=== PATIENT | male | born 1930 | race Caucasian/White ===

== ENCOUNTER 2018-09-15 22:18 | Inpatient (IN) | payer OTHER, BC ==
[~2018-09-15] VITALS: Ht 177.8 cm; Wt 93.9 kg
[~2018-09-15 22:18] MED LIST: ASCO500T20 PO; CYAN100010 PO; CYM30 PO; DEXL60CA4 PO; FURO-149 PO; GABA-533 PO; GLIP10TA21 PO; INSU100V9 SQ; LINA5TAB2 PO; METO1TAB39 PO; OMEG-95 PO; POTA8TAB4 PO; ROSU40TA PO; SENN-104 PO; SUCR1TAB78 PO; VITD2000 PO
[2018-09-15 22:21] VITALS: BP_SYST 145
[2018-09-15] MEDS ORDERED: NACL 0.9% 1,000 ML IV ONE (22:45)
[2018-09-15 23:05] LABS: RED BLOOD CELL COUNT(AUTO) 3.36 MIL/uL (4.2-6.2)
[2018-09-15 23:06] LABS: HEMATOCRIT 34.3 % (36-54); HEMOGLOBIN 11.4 g/dL (14.0-18.0); LYMPHOCYTES % (AUTO) 7.9 % (20.5-51.5); MEAN CORPUSCULAR HEMOGLOBIN 34 pg (27-31); MEAN CORPUSCULAR HGB CONC 33 % (32-36); MEAN CORPUSCULAR VOLUME 102 fL (79.0-98.0); NEUTROPHILS % (AUTO) 83.6 % (40.0-70.0); PLATELET COUNT (AUTO) 139 K/uL (130-430); RED CELL DISTRIBUTION WIDTH 17.3 % (9.0-15.0)
[2018-09-15 23:07] LABS: BASOPHILS % (AUTO) 0.3 % (0.0-2.0); EOSINOPHILS % (AUTO) 0.5 % (0.0-4.0); LYMPHOCYTES # (AUTO) 0.6 K/uL (1.0-5.5); MONOCYTES # (AUTO) 0.5 K/uL (0.0-1.0); MONOCYTES % (AUTO) 7.7 % (1.7-9.3); NEUTROPHILS # (AUTO) 5.9 K/uL (1.8-7.7)
[2018-09-15 23:13] LABS: ANION GAP 9 (5-15); CALCIUM 8.1 mg/dL (8.4-11.0); CHLORIDE 102 mmol/L (98-107); CREATININE 1.77 mg/dL (0.55-1.30); GLUCOSE 91 mg/dL (70-99); SODIUM SERUM 136 mmol/L (136-145); UREA NITROGEN, BLOOD 37 mg/dL (8-21)
[2018-09-15 23:17] LABS: ALANINE AMINOTRANSFERASE 30 U/L (12-78); ALBUMIN 3.5 g/dL (3.4-4.8); ASPARTATE AMINOTRANSFERASE 31 U/L (10-37); TOTAL BILIRUBIN 0.6 mg/dL (0.0-1.0)
[2018-09-15 23:30] LABS: PROTHROMBIN TIME 10.7 SECS (9.5-12.5)
[2018-09-15] MEDS ORDERED: POTASSIUM CHLORIDE 20 MEQ TAB.PRT.SR PO ONE (23:30)
[2018-09-16] VITALS (7 sets, daily range): BP systolic 93–155
[2018-09-16] MEDS ORDERED: NACL 0.9% 3,000 ML IV ONE
[2018-09-16] MEDS ORDERED: ENOXAPARIN SODIUM 100 MG/ML SYRINGE SUBCUT ONE
[2018-09-16] MEDS ORDERED: ASPIRIN 81 MG TAB.CHEW PO ONE
[2018-09-16] MEDS ORDERED: CYM30 PO (00:26)
[2018-09-16] MEDS ORDERED: GABA-533 PO (00:26)
[2018-09-16] MEDS ORDERED: SUCR1TAB78 PO (00:26)
[2018-09-16] MEDS ORDERED: LINA5TAB2 PO (00:26)
[2018-09-16] MEDS ORDERED: POTA8TAB4 PO (00:26)
[2018-09-16] MEDS ORDERED: DEXL60CA4 PO (00:26)
[2018-09-16] MEDS ORDERED: OXYC-580 PO (00:26)
[2018-09-16] MEDS ORDERED: METO50TA7 PO (00:26)
[2018-09-16] MEDS ORDERED: MORPHINE 4 MG/ML INJ. SYRINGE IVP ONE (00:30)
[2018-09-16] MEDS ORDERED: NOVOLOG SQ (00:35)
[2018-09-16 00:45] LABS: BILIRUBIN,URINE NEGATIVE (NEGATIVE); CLARITY/URINE CLEAR (CLEAR); COLOR,URINE YELLOW (YELLOW); GLUCOSE,URINE TRACE (NEGATIVE); KETONES,URINE NEGATIVE (NEGATIVE); LEUKOCYTE ESTERASE ,URINE NEGATIVE (NEGATIVE); NITRITE, URINE NEGATIVE (NEGATIVE); PROTEIN URINE 1+ (NEGATIVE); UROBILINOGEN,URINE 0.2 (0.2-1.0)
[2018-09-16] MEDS ORDERED: DEXTROSE 50% JECT 50 ML DISP.SYRIN IVP ONE (00:45)
[2018-09-16 00:46] LABS: BLOOD, URINE TRACE (NEGATIVE)
[2018-09-16 01:13] LABS: BACTERIA,URINE FEW /HPF (None Seen); WBC,URINE 0-3 /HPF (0-3)
[2018-09-16] MEDS ORDERED: D5W 1,000 ML IV PRN (06:04)
[2018-09-16] MEDS ORDERED: ACETAMINOPHEN 325 MG TABLET PO PRN (06:15)
[2018-09-16] MEDS ORDERED: DOCUSATE SODIUM 100 MG CAPSULE PO PRN (06:15)
[2018-09-16] MEDS ORDERED: DEXTROSE 50% JECT 50 ML DISP.SYRIN IVP PRN (06:15)
[2018-09-16] MEDS ORDERED: MUPIROCIN 2% TOPICAL OINTMENT 22 GM NS PRN (06:15)
[2018-09-16] MEDS ORDERED: GLUCOSE 15 GM GEL (in 37.5 GM TUBE) PO PRN (06:15)
[2018-09-16] MEDS ORDERED: ZOLPIDEM TARTRATE 5 MG TABLET PO PRN (06:15)
[2018-09-16] MEDS ORDERED: POTASSIUM CHLORIDE 20 MEQ TAB.PRT.SR PO PRN (06:15)
[2018-09-16] MEDS ORDERED: LORazepam 2 MG/ML VIAL IVP PRN (06:15)
[2018-09-16] MEDS ORDERED: MAGNESIUM SULFATE 50 ML IV PRN (06:15)
[2018-09-16] MEDS ORDERED: oxyCODONE HCL 5 MG TABLET PO PRN (06:15)
[2018-09-16] MEDS ORDERED: ONDANSETRON HCL 4 MG/2 ML VIAL IVP PRN (06:15)
[2018-09-16] MEDS ORDERED: DEXTROSE 50% JECT 50 ML DISP.SYRIN ONE (06:17)
[2018-09-16] MEDS: D5NS 1,000 ML IV SCH ×2 (06:50→09:53)
[2018-09-16] MEDS: MORPHINE 4 MG/ML INJ. SYRINGE IVP PRN ×5 (08:12→22:31)
[2018-09-16 08:25] LABS: ANION GAP 11 (5-15); CALCIUM 8.2 mg/dL (8.4-11.0); CHLORIDE 107 mmol/L (98-107); CREATININE 1.51 mg/dL (0.55-1.30); GLUCOSE 80 mg/dL (70-99); POTASSIUM 3.7 mmol/L (3.5-5.1); SODIUM SERUM 142 mmol/L (136-145); UREA NITROGEN, BLOOD 30 mg/dL (8-21)
[2018-09-16] MEDS ORDERED: ENOXAPARIN SODIUM 30 MG/0.3 ML SYRINGE SUBCUT SCH (09:00)
[2018-09-16] MEDS ORDERED: POTASSIUM CHLORIDE 8 MEQ TABLET.SA PO SCH (09:00)
[2018-09-16] MEDS ORDERED: FUROSEMIDE 40 MG TABLET PO SCH (09:00)
[2018-09-16] MEDS ORDERED: FUROSEMIDE 20 MG/2 ML VIAL IVP ONE (09:45)
[2018-09-16] MEDS: SUCRALFATE 1 GM TABLET PO SCH ×4 (09:51→20:36)
[2018-09-16] MEDS: GABAPENTIN 400 MG CAPSULE PO SCH ×2 (09:51→20:36)
[2018-09-16] MEDS ORDERED: MORPHINE SULFATE 15 MG TABLET.ER PO ONE (10:00)
[2018-09-16] MEDS: PANTOPRAZOLE SODIUM 40 MG TAB PO SCH (14:08)
[2018-09-16] MEDS: SENNOSIDES/DOCUSATE SODIUM 1 TAB TABLET(SENOKOT-S) PO SCH ×2 (14:08→20:36)
[2018-09-16] MEDS ORDERED: ASPI-1153 PO (16:47)
[2018-09-16] MEDS ORDERED: CALC0.258 PO (16:47)
[2018-09-16] MEDS ORDERED: DEC4 PO (16:47)
[2018-09-16] MEDS: DULoxetine HCL 30 MG CAPSULE.DR (CYMBALTA) PO SCH (20:36)
[2018-09-16] MEDS: MORPHINE SULFATE 15 MG TABLET.ER PO SCH (20:38)
[2018-09-16] MEDS: APIXABAN 2.5 MG TABLET PO SCH (20:38)
[2018-09-16] MEDS: INSULIN REGULAR, HUMAN 100 UNITS/ML, 10 ML VIAL (novoLIN R) SUBCUT PRN (20:59)
[2018-09-16] MEDS ORDERED: [UNRECOGNIZED DRUG - OTHER] PO SCH (21:00)
[2018-09-16] MEDS ORDERED: METOPROLOL SUCCINATE PO SCH (21:00)
[2018-09-16] MEDS ORDERED: HCTZ PO SCH (21:00)
[2018-09-16] MEDS ORDERED: ATORVASTATIN 20 MG TABLET PO SCH (21:00)
[2018-09-17] MEDS: MORPHINE 4 MG/ML INJ. SYRINGE IVP PRN ×5 (01:09→20:29)
[2018-09-17] MEDS: D5NS 1,000 ML IV SCH ×2 (01:10→22:30)
[2018-09-17 07:22] LABS: ANION GAP 10 (5-15); CHLORIDE 108 mmol/L (98-107); CREATININE 1.57 mg/dL (0.55-1.30); GLUCOSE 71 mg/dL (70-99); POTASSIUM 4.1 mmol/L (3.5-5.1); SODIUM SERUM 140 mmol/L (136-145); UREA NITROGEN, BLOOD 24 mg/dL (8-21)
[2018-09-17 07:42] LABS: HEMATOCRIT 30.9 % (36-54); HEMOGLOBIN 10.2 g/dL (14.0-18.0); MEAN CORPUSCULAR HEMOGLOBIN 34 pg (27-31); MEAN CORPUSCULAR VOLUME 102 fL (79.0-98.0); RED BLOOD CELL COUNT(AUTO) 3.02 MIL/uL (4.2-6.2); WHITE BLOOD COUNT (AUTO) 4.5 K/uL (4.8-10.8)
[2018-09-17 07:43] LABS: BASOPHILS % (AUTO) 0.4 % (0.0-2.0); EOSINOPHILS # (AUTO) 0.2 K/uL (0.0-0.4); EOSINOPHILS % (AUTO) 3.6 % (0.0-4.0); LYMPHOCYTES # (AUTO) 0.9 K/uL (1.0-5.5); LYMPHOCYTES % (AUTO) 18.9 % (20.5-51.5); MEAN CORPUSCULAR HGB CONC 33 % (32-36); MONOCYTES # (AUTO) 0.5 K/uL (0.0-1.0); MONOCYTES % (AUTO) 11.1 % (1.7-9.3); PLATELET COUNT (AUTO) 116 K/uL (130-430); RED CELL DISTRIBUTION WIDTH 17.8 % (9.0-15.0)
[2018-09-17 08:42] VITALS: BP_SYST 119
[2018-09-17] MEDS: MORPHINE SULFATE 15 MG TABLET.ER PO SCH ×2 (08:47→22:09)
[2018-09-17] MEDS: GABAPENTIN 400 MG CAPSULE PO SCH ×2 (08:47→22:08)
[2018-09-17] MEDS: SENNOSIDES/DOCUSATE SODIUM 1 TAB TABLET(SENOKOT-S) PO SCH ×2 (08:48→22:26)
[2018-09-17] MEDS: SUCRALFATE 1 GM TABLET PO SCH ×4 (08:48→22:23)
[2018-09-17] MEDS: PANTOPRAZOLE SODIUM 40 MG TAB PO SCH (08:48)
[2018-09-17] MEDS: FUROSEMIDE 40 MG/4 ML VIAL IVP SCH (08:49)
[2018-09-17] MEDS: APIXABAN 2.5 MG TABLET PO SCH ×2 (08:57→22:09)
[2018-09-17] MEDS ORDERED: REVLIMID 25 MG PO SCH ×2 (11:00)
[2018-09-17] MEDS ORDERED: METOPROLOL SUCCINATE 50 MG TAB.SR.24H (TOPROL XL) PO SCH (11:00)
[2018-09-17] MEDS: METOPROLOL SUCCINATE 25 MG TAB.SR.24H (TOPROL XL) PO SCH (11:22)
[2018-09-17 11:39] VITALS: BP_SYST 118
[2018-09-17 15:34] VITALS: BP_SYST 117
[2018-09-17] MEDS: INSULIN REGULAR, HUMAN 100 UNITS/ML, 10 ML VIAL (novoLIN R) SUBCUT PRN ×2 (17:11→22:28)
[2018-09-17 20:30] VITALS: BP_SYST 141
[2018-09-17] MEDS ORDERED: ATORVASTATIN 20 MG TABLET PO SCH (21:00)
[2018-09-17] MEDS: DULoxetine HCL 30 MG CAPSULE.DR (CYMBALTA) PO SCH (22:08)
[2018-09-18 00:30] VITALS: BP_SYST 124
[2018-09-18] MEDS: MORPHINE 4 MG/ML INJ. SYRINGE IVP PRN (06:48)
[2018-09-18] MEDS: INSULIN REGULAR, HUMAN 100 UNITS/ML, 10 ML VIAL (novoLIN R) SUBCUT PRN ×2 (06:54→11:35)
[2018-09-18 07:36] VITALS: BP_SYST 138
[2018-09-18 07:48] LABS: ANION GAP 9 (5-15); CALCIUM 7.1 mg/dL (8.4-11.0); CHLORIDE 104 mmol/L (98-107); CREATININE 1.66 mg/dL (0.55-1.30); GLUCOSE 153 mg/dL (70-99); POTASSIUM 3.7 mmol/L (3.5-5.1); SODIUM SERUM 137 mmol/L (136-145); UREA NITROGEN, BLOOD 24 mg/dL (8-21)
[2018-09-18 08:19] LABS: HEMATOCRIT 31.2 % (36-54); HEMOGLOBIN 10.3 g/dL (14.0-18.0); MEAN CORPUSCULAR HEMOGLOBIN 34 pg (27-31); MEAN CORPUSCULAR HGB CONC 33 % (32-36); MEAN CORPUSCULAR VOLUME 102 fL (79.0-98.0); RED BLOOD CELL COUNT(AUTO) 3.05 MIL/uL (4.2-6.2); RED CELL DISTRIBUTION WIDTH 17.3 % (9.0-15.0); WHITE BLOOD COUNT (AUTO) 3.6 K/uL (4.8-10.8)
[2018-09-18 08:20] LABS: BASOPHILS % (AUTO) 0.5 % (0.0-2.0); EOSINOPHILS # (AUTO) 0.2 K/uL (0.0-0.4); EOSINOPHILS % (AUTO) 5.2 % (0.0-4.0); LYMPHOCYTES # (AUTO) 0.8 K/uL (1.0-5.5); MONOCYTES # (AUTO) 0.4 K/uL (0.0-1.0); MONOCYTES % (AUTO) 10.9 % (1.7-9.3); NEUTROPHILS # (AUTO) 2.2 K/uL (1.8-7.7); NEUTROPHILS % (AUTO) 61.4 % (40.0-70.0); PLATELET COUNT (AUTO) 112 K/uL (130-430)
[2018-09-18] MEDS: FUROSEMIDE 40 MG/4 ML VIAL IVP SCH (09:13)
[2018-09-18] MEDS: SUCRALFATE 1 GM TABLET PO SCH (09:13)
[2018-09-18] MEDS: SENNOSIDES/DOCUSATE SODIUM 1 TAB TABLET(SENOKOT-S) PO SCH (09:14)
[2018-09-18] MEDS: METOPROLOL SUCCINATE 25 MG TAB.SR.24H (TOPROL XL) PO SCH (09:14)
[2018-09-18] MEDS: MORPHINE SULFATE 15 MG TABLET.ER PO SCH (09:14)
[2018-09-18] MEDS: GABAPENTIN 400 MG CAPSULE PO SCH (09:14)
[2018-09-18] MEDS: PANTOPRAZOLE SODIUM 40 MG TAB PO SCH (09:15)
[2018-09-18] MEDS: APIXABAN 2.5 MG TABLET PO SCH (09:15)
[2018-09-18 09:47] VITALS: BP_SYST 138
[2018-09-18 11:25] VITALS: BP_SYST 136
== END 2018-09-18 12:25 | disposition home or self-care (01) | DRG 280 ==
LOC: SED 22:18 → STU 09-16 00:04
PROVIDERS: ADMIT General Practice; ATTEND General Practice
DX: I11.0 Hypertensive heart disease with heart failure (principal); G93.41 Metabolic encephalopathy; I21.A1 Myocardial infarction type 2; N17.0 Acute kidney failure with tubular necrosis; C90.00 Multiple myeloma not having achieved remission; E11.649 Type 2 diabetes mellitus with hypoglycemia without coma; I50.43 Acute on chronic combined systolic (congestive) and diastolic (congestive) heart failure; E87.6 Hypokalemia; E78.5 Hyperlipidemia, unspecified; G89.29 Other chronic pain; F32.9 Major depressive disorder, single episode, unspecified; E78.00 Pure hypercholesterolemia, unspecified; E11.51 Type 2 diabetes mellitus with diabetic peripheral angiopathy without gangrene; N18.9 Chronic kidney disease, unspecified; I48.0 Paroxysmal atrial fibrillation; I25.10 Atherosclerotic heart disease of native coronary artery without angina pectoris; Z87.01 Personal history of pneumonia (recurrent); Z90.49 Acquired absence of other specified parts of digestive tract; Z95.5 Presence of coronary angioplasty implant and graft; Z79.899 Other long term (current) drug therapy; I25.2 Old myocardial infarction; Z92.21 Personal history of antineoplastic chemotherapy
CPT/HCPCS: 36415; 71045; 80048; 80053; 81000-TC; 82962; 83036; 83605; 83735-TC; 83880; 84484; 85025; 85610-TC; 85730-TC; 87040-TC; 87081; 87086; 93005; 96372; 96374; 96375; 99285; G0378; J1650; J1815; J1940; J2270; J7030; J7042